=== PATIENT | male | born 1980 | race Two or more races ===

== ENCOUNTER 2018-06-16 19:46 | Emergency (ER) | payer SELFPAY ==
[~2018-06-16] VITALS: Ht 170.2 cm; Wt 91.0 kg
[2018-06-16] MEDS ORDERED: LEVETIRACETAM 1000MG/100ML 100 ML IV ONE (21:15)
[2018-06-16 22:01] LABS: BASOPHILS % 0.3 % (0.0-2.0); EOSINOPHILS % 1.8 % (0.0-5.0); HEMATOCRIT. 44.1 % (42.0-52.0); HEMOGLOBIN. 14.8 g/dL (14.0-18.0); LYMPHOCYTES % 14.6 % (20.0-50.0); MEAN CORPUSCULAR HEMOGLOBIN 29.2 pg (28.0-32.0); MEAN CORPUSCULAR VOLUME 86.7 fL (80.0-94.0); MONOCYTES % 11.2 % (2.0-8.0); NEUTROPHILS % 72.1 % (40.0-76.0); PLATELET 297 x1000/uL (130-400); RED BLOOD CELL COUNT 5.08 mill/uL (4.7-6.1); RED CELL DISTRIBUTION WIDTH 13.7 % (11.6-14.6)
[2018-06-16 22:04] LABS: CHLORIDE 105 mEq/L (98-107)
[2018-06-16 22:06] LABS: PROTHROMBIN TIME 10.1 sec (9.4-11.6)
[2018-06-16 22:08] LABS: ETHANOL BLOOD < 10 mg/dL
[2018-06-16 22:13] LABS: CARBAMAZEPINE < 0.5 ug/mL (4-12); VALPROIC ACID < 3.0 ug/mL (50-100)
[2018-06-17] MEDS ORDERED: KETOROLAC 30MG/ML VIAL IV ONE (01:15)
[2018-06-17 01:23] LABS: CLARITY URINE CLEAR (CLEAR); COLOR URINE YELLOW (YELLOW); KETONES URINE NEGATIVE (NEGATIVE); LEUKOCYTE ESTERASE URINE NEGATIVE (NEGATIVE); NITRITE URINE NEGATIVE (NEGATIVE); OCCULT BLOOD URINE NEGATIVE (NEGATIVE); PROTEIN URINE NEGATIVE (NEGATIVE); SPECIFIC GRAVITY URINE 1.029 (1.005-1.030); UROBILINOGEN URINE 0.2 E.U./dL (0.2-1.0)
[2018-06-17 02:02] LABS: *AMPHETAMINES SCREEN URINE PRESUMTIVE POSITIVE (NEGATIVE); *BARBITURATES SCREEN URINE NEGATIVE (NEGATIVE)
[2018-06-17 02:03] LABS: *BENZODIAZEPINES SCREEN URINE PRESUMTIVE POSITIVE (NEGATIVE); *COCAINE SCREEN URINE NEGATIVE (NEGATIVE); CANNABINOID URINE SCREEN NEGATIVE (NEGATIVE); METHADONE URINE SCREEN NEGATIVE (NEGATIVE); OPIATES URINE SCREEN NEGATIVE (NEGATIVE); PHENCYCLIDINE URINE SCREEN NEGATIVE (NEGATIVE)
[2018-06-17 12:16] VITALS: BP 121/69
== END 2018-06-17 12:20 | disposition home or self-care (01) ==
LOC: ER 19:46
DX: R56.9 Unspecified convulsions (principal); F17.200 Nicotine dependence, unspecified, uncomplicated; F15.10 Other stimulant abuse, uncomplicated; R79.1 Abnormal coagulation profile; Z59.0 Homelessness
CPT/HCPCS: 36415; 70450; 71045; 73030; 80053; 80156; 80165; 80185; 80305; 81003; 82962; 84484; 85025; 85610; 96365; 96375; 99285; G0482; J1885; J1953; Z7610